=== PATIENT | male | born 1945 | race Caucasian/White ===

== ENCOUNTER 2025-03-29 15:14 | Emergency (ER) | payer OTHER, MEDICAID ==
[~2025-03-29] VITALS: Ht 170.2 cm; Wt 64.0 kg
[2025-03-29 15:17] VITALS: O2SAT 98
[2025-03-29 15:57] LABS: BASOPHILS % 0.5 % (0.0-2.0); EOSINOPHILS % 0.3 % (0.0-5.0); HEMATOCRIT. 33.8 % (42.0-52.0); HEMOGLOBIN. 10.7 g/dL (14.0-18.0); LYMPHOCYTES % 16.4 % (20.0-50.0); MEAN PLATELET VOLUME 8.5 fl (7.4-10.4); MONOCYTES % 12.2 % (2.0-8.0); NEUTROPHILS % 70.6 % (40.0-76.0); PLATELET 283 x1000/uL (130-400); RED BLOOD CELL COUNT 3.85 mill/uL (4.7-6.1); RED CELL DISTRIBUTION WIDTH 13.2 % (11.6-14.6)
[2025-03-29 16:34] LABS: CREATININE 0.8 mg/dL (0.6-1.3); TROPONIN I HIGH SENSITIVITY < 4 ng/L (3.0-53); UREA NITROGEN BLOOD 11 mg/dL (9-23)
[2025-03-29 16:35] LABS: PROTEIN TOTAL 7.8 g/dL (6.0-8.3)
[2025-03-29 16:36] LABS: ASPARTATE AMINOTRANSFERASE 47 IU/L (<34); BILIRUBIN DIRECT 0.3 mg/dL (<=3.0); BILIRUBIN TOTAL 0.9 mg/dL (0.1-1.0)
[2025-03-29] MEDS: ONDANSETRON HCL 4MG/2ML INJ IV ONE (17:42)
[2025-03-29] MEDS: MORPHINE SULFATE 4 MG/ML INJ (FOR IV/IM USE) IV ONE (17:42)
[2025-03-29] MEDS: MECLIZINE 25MG TABLET PO ONE (17:44)
[2025-03-29] MEDS: SODIUM CHLORIDE 0.9% 1,000 ML IV ONE (17:44)
[2025-03-29 17:51] LABS: INR 1.1
[2025-03-29 17:55] LABS: TROPONIN I HIGH SENSITIVITY < 4 ng/L (3.0-53)
[2025-03-29 21:20] VITALS: BP 111/55; PULSE 77; RESP 16; TEMP 37.1; O2SAT 96
[2025-03-29 21:34] LABS: TROPONIN I HIGH SENSITIVITY < 4 ng/L (3.0-53)
[2025-03-29 21:37] LABS: INFLUENZA TYPE A Presumptive Negative (Pres. Neg.)
[2025-03-29 21:38] LABS: INFLUENZA TYPE B Presumptive Negative (Pres. Neg.)
[2025-03-29 21:39] LABS: RESPIRATORY SYNCYTIAL VIRUS Not Detected (Not Detectd)
[2025-03-29] MEDS ORDERED: IOHEXOL-350 100 ML BOTTLE ONE (23:56)
== END 2025-03-29 22:43 | disposition short-term general hospital (02) ==
LOC: ER 15:14 → CMPBEDREQ 03-30 09:14
DX: J90 Pleural effusion, not elsewhere classified (principal); R18.8 Other ascites; K76.9 Liver disease, unspecified; R06.02 Shortness of breath; Z79.899 Other long term (current) drug therapy; Z20.822 Contact with and (suspected) exposure to COVID-19
CPT/HCPCS: 99285; 74174; 96374; 71275; 96361; 71045; 96375; 80076; 80048; 83880; 83735; 85025; 85610; 87420; 84484; 87804 ×2; 93005; 36415; Q9967; J8597; J2405; J2270; J7030; A4615